=== PATIENT | female | born 1950 | race Hispanic/Latino ===

== ENCOUNTER → 2017-07-07 | Day surgery (SDC) | payer MEDICARE, OTHER ==
[2017-06-27 15:54] LABS: BASOPHILS # (AUTO) 0.1 (0.0-0.1); BASOPHILS % 0.7 % (0.0-1.0); EOSINOPHILS # (AUTO) 0.3 (0.0-0.4); EOSINOPHILS % 2.6 % (0.0-6.0); HEMOGLOBIN 12.8 g/dL (12.0-16.0); LYMPHOCYTES # (AUTO) 2.8 (1.0-3.2); LYMPHOCYTES % 27.6 % (18.0-39.1); MEAN CORPUSCULAR HEMOGLOBIN 27.7 pg (28-32); MEAN CORPUSCULAR HGB CONC 32.8 g/dL (31-35); MEAN CORPUSCULAR VOLUME 84.4 fL (81-99); MONOCYTES # (AUTO) 0.8 (0.2-0.8); MONOCYTES % 8.2 % (4.4-11.3); NEUTROPHILS # (AUTO) 6.1 (2.1-6.9); NEUTROPHILS % 60.7 % (38.7-80.0); PLATELET COUNT 274 x10e3/uL (140-360); RED BLOOD COUNT 4.62 x10e6/uL (3.6-5.1); RED CELL DISTRIBUTION WIDTH 12.3 % (11.7-14.4)
[~2017-07-07] MED LIST: ALENDRONATE SOD70 MG PO; ANUSOL-HC25 MG RC; BIOTIN2500 MCG PO; CALCIUM 600 +1 EAC2 PO; FEXOFENADINE-P1 EACH PO; GABAPENTIN300 MG PO; GLIPIZIDE5 MG PO; HYDROCHLOROTHIAZIDE; INSULIN REGULAR, HUMAN 100 UNIT/1 ML 3ML VIAL ONE; LIDOCAINE HCL 2% LOCAL INJ 5 ML SDV VIAL INJ ONE; METFORMIN HCL500 M2 PO; MIDAZOLAM HCL 2 MG/2 ML VIAL ONE; PROPOFOL IV EMULSION 10 MG/ML 50 ML VIAL ONE; PROVENTIL HFA6.7 GM INH; TIMOLOL
--- OUTSIDE RECORDS SUMMARY | 2017-07-07 09:03 | XMS REPORT ---
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 Allergies, Adverse Reactions, Alerts This patient has no known allergies or adverse reactions. Medications This patient has no known medications. Encounters Start Date/Time End Date/Time Encounter Type Admission Type Attending [facility] Care Department Encounter ID 2017-07-06 08:21:27 2017-07-06 08:21:27 Outpatient [facility] [id number] 2017-05-23 00:00:00 2017-05-23 00:00:00 Outpatient [facility] [id number] 2017-04-11 00:00:00 2017-04-11 00:00:00 Outpatient [facility] [id number] 2017-01-17 08:53:43 2017-01-17 08:53:43 Outpatient [facility] [id number] 2017-01-17 07:52:14 2017-01-17 07:52:14 Outpatient [facility] [id number] 2016-12-22 00:00:00 2016-12-22 00:00:00 Outpatient [facility] [id number] 2016-12-21 08:22:47 2016-12-21 08:22:47 Outpatient [facility] [id number] 2016-12-16 07:43:07 2016-12-16 07:43:07 Outpatient [facility] [id number] 2016-11-23 10:12:12 2016-11-23 10:12:12 Outpatient [facility] [id number] 2016-10-19 10:51:00 2016-10-19 10:51:00 Outpatient [facility] [id number]
== END | disposition home or self-care (01) ==
LOC: OR 09:00
PROVIDERS: ATTEND Internal Medicine Gastroenterology
DX: Z12.11 Encounter for screening for malignant neoplasm of colon (principal); D12.3 Benign neoplasm of transverse colon; K64.8 Other hemorrhoids; E11.9 Type 2 diabetes mellitus without complications; E66.3 Overweight; J45.909 Unspecified asthma, uncomplicated; F17.210 Nicotine dependence, cigarettes, uncomplicated; Z01.810 Encounter for preprocedural cardiovascular examination; Z01.812 Encounter for preprocedural laboratory examination; Z68.26 Body mass index [BMI] 26.0-26.9, adult; Z83.71 Family history of colonic polyps
CPT/HCPCS: 36415 ×2; 45385; 82948; 85025; 88305; 93005; J2001; J2250